=== PATIENT | male | born 1995 | race Hispanic/Latino ===

== ENCOUNTER 2019-06-27 19:07 | Inpatient (IN) ==
[2019-06-27] MEDS ORDERED: ZOFRAN IV ONE (20:04)
[2019-06-27] MEDS ORDERED: TORADOL IV ONE (20:04)
[2019-06-27 20:12] LABS: BASO# 0.03 X1000 (0.0-0.2); BASO% 0.2 % (0.0-0.8); EOS# 0.09 X1000 (0.0-0.7); EOS% 0.6 % (0.0-10.0); HEMATOCRIT 42.9 % (42.0-52.0); HEMOGLOBIN 14.9 g/dL (14.0-18.0); IMM GRAN# 0.03 X1000 (0.0-0.04); IMM GRAN% 0.2 % (0.0-0.5); MCH 29.6 PG (27-31); MCHC 34.7 g/dL (33-37); MCV 85.1 FL (81-99); MONO# 0.62 X1000 (0.11-0.59); MONO% 4.4 % (1.7-9.3); MPV 9.1 FL (7.4-10.4); NEUT# 11.74 X1000 (1.4-6.5); NEUT% 82.6 % (42.2-75.2); PLT 297 X1000 (130-400); RBC 5.04 XMIL (4.7-6.1); RDW 12.2 % (11.5-14.5); WBC 14.21 X1000 (4.8-10.8)
[2019-06-27 20:29] LABS: BILIRUBIN URINE NEGATIVE (NEGATIVE); BLOOD URINE NEGATIVE (NEGATIVE); CLARITY VERY CLOUDY (CLEAR); COLOR YELLOW; GLUCOSE URINE NEGATIVE (NEGATIVE); KETONE URINE NEGATIVE (NEGATIVE); LEUKOCYTES URINE TRACE (NEGATIVE); NITRITE URINE NEGATIVE (NEGATIVE); PROTEIN URINE NEGATIVE (NEGATIVE); UROBILINOGEN URINE NORMAL
[2019-06-27] MEDS: NS 1,000 ML IV ONE (20:31)
[2019-06-27 20:38] LABS: AGAP 11; ALBUMIN 5.2 g/dL (3.5-5.0); ALKALINE PHOSPHATASE 138 U/L (32-122); BUN 16 mg/dL (8-22); CALCIUM 9.8 mg/dL (8.8-10.2); CHLORIDE 102 mmol/L (98-107); COSMO 282; CREATININE 0.8 mg/dL (0.7-1.2); ESTIMATED GFR > 60; GLUCOSE 118 mg/dL (70-104); GOT 32 U/L (10-34); GPT 46 U/L (10-44); LIPASE 12 U/L (13-60); POTASSIUM 3.6 mmol/L (3.5-5.1); SODIUM 140 mmol/L (136-145); TCO2 27 mmol/L (25-35); TOTAL PROTEIN 7.7 g/dL (6.3-8.3)
[2019-06-27 20:44] LABS: URINE BACTERIA 2+ /HFP; URINE CAST NONE SEEN /LPF; URINE CRYSTAL NONE SEEN /HPF; URINE EPITHELIAL CELLS <10 /HPF (<10); URINE SOURCE CLEAN CATCH; URINE WBC <10 /HPF (<10); URINE YEAST NONE SEEN /HPF
[2019-06-27] MEDS ORDERED: MORPHINE IV ONE (20:50)
[2019-06-27] MEDS ORDERED: NS 1,000 ML IV ONE (23:07)
[2019-06-27] MEDS ORDERED: ZOFRAN IV PRN (23:08)
[2019-06-27] MEDS ORDERED: MORPHINE IV PRN (23:08)
[2019-06-27] MEDS ORDERED: ZOSYN 4.5 GM in NS 100 ML IV SCH (23:15)
[2019-06-28] MEDS: NS 1,000 ML IV ONE (00:01)
[2019-06-28] MEDS ORDERED: TORADOL IV PRN (02:00)
[2019-06-28 06:25] LABS: BASO# 0.02 X1000 (0.0-0.2); BASO% 0.2 % (0.0-0.8); EOS# 0.09 X1000 (0.0-0.7); EOS% 0.8 % (0.0-10.0); HEMATOCRIT 40.6 % (42.0-52.0); IMM GRAN# 0.02 X1000 (0.0-0.04); IMM GRAN% 0.2 % (0.0-0.5); LYMPH% 16.5 % (20.5-51.1); MCH 29.6 PG (27-31); MCHC 34.5 g/dL (33-37); MCV 85.8 FL (81-99); MONO# 0.84 X1000 (0.11-0.59); MONO% 7.7 % (1.7-9.3); MPV 9.3 FL (7.4-10.4); NEUT# 8.11 X1000 (1.4-6.5); NEUT% 74.6 % (42.2-75.2); PLT 276 X1000 (130-400); RBC 4.73 XMIL (4.7-6.1); RDW 12.4 % (11.5-14.5); WBC 10.88 X1000 (4.8-10.8)
--- NOTE | 2019-06-28 06:31 | HISTORY AND PHYSICAL ---
HISTORY: This is a 23-year-old male who yesterday developed some epigastric pain across his mid abdomen. Because of the pain, he sought medical attention. This morning he says he feels better, and he is not having pain. When he had come to the emergency department last night, he underwent a CT scan which showed an appendicolith. His white count was slightly elevated so he was admitted for observation. Today, he feels better. He denies any other medical illnesses. MEDICATIONS: He takes no scheduled medications. ALLERGIES: He has no known drug allergies. SOCIAL HISTORY: He does work with the [employer] department. He denies alcohol intake. Denies smoking. REVIEW OF SYSTEMS: Negative in all 10 subsystems. PHYSICAL EXAMINATION: VITAL SIGNS: He is afebrile. Heart rate 61, blood pressure 105/53, and respiratory rate is 18. LYMPHATIC: No cervical adenopathy. LUNGS: Bilateral breath sounds. HEART: Regular rate and rhythm. ABDOMEN: Soft. Currently, he is nontender. Bowel sounds are present. EXTREMITIES: No peripheral edema. NEUROLOGIC: He is awake and alert. He does speak Khmer. LABORATORY: His white count upon admission was 14,000 with a left shift. He had a mildly elevated alkaline phosphatase at 138. ALT 146. His lipase was low. PLAN: The plan will be to repeat his white count this morning, and do serial abdominal exams. We will decide about operative intervention since he is clinically improved. cc: David Whitmore MD
--- NOTE | 2019-06-28 07:19 | Diag Imaging Result Doc PS360 ---
EXAM: CT ABD/PELVIS W/IV CONT ONLY 06/27/2019 HISTORY: diffuse abd pain TECHNIQUE: This exam was performed using automated exposure control, adjustment of mA or kV according to patient size, and/or use of iterative reconstruction technique. COMMENT: There are no previous studies available for comparison. The visualized portion of the chest is unremarkable. There is lucency in the periportal regions of the liver. This is a nonspecific finding but may be seen in hepatitis. The gallbladder appears to be clear. The kidneys are without evidence of hydronephrosis or mass. The spleen is not enlarged. The adrenal glands are not enlarged. The pancreas is normal in appearance. There is some stool in the colon. The small bowel is not distended. The aorta is not distended. There is no evidence of significant adenopathy. Pelvis: There are apparent fecalith in the appendix. The distal appendix appears to be distended measuring up to a centimeter in diameter. There is no evidence of periappendiceal inflammation and the wall of the appendix does not appear to be thickened. The urinary bladder is not distended. There is no evidence of free fluid or significant adenopathy. The regional skeleton is intact. IMPRESSION: 1. Periportal edema. 2. Distended appendix with appendicoliths. Electronically signed by Preston Morris 06/28/2019 7:17 AM
[2019-06-28 12:19] VITALS: BP 101/53
--- NOTE | 2019-06-28 18:37 | GENERAL SURGERY PROGRESS NOTE ---
DATE: 06/28/2019 SUBJECTIVE: Frantz now has no pain. He is nontender. He is hungry. He wants to go home. His white count has fallen spontaneously without any antibiotic therapy. I have instructed him to return to the ER if he has further problems. He understands. cc: David Whitmore MD
--- NOTE | 2019-07-04 01:26 | PROVIDER DOCUMENTATION ---
This chart was entered by America Cardenas Scribe, acting as scribe for Anabel Johnson MD. HPI-Abdominal Pain/GI Problem - General Chief Complaint: Abdominal Pain Stated Complaint: ABD PAIN/VOMITING Time Seen by Provider: 06/27/19 19:39 Source: patient Allergies/Adverse Reactions: Patient Allergies Allergy/AdvReac Type Severity Reaction Status Date / Time No Known Allergies Allergy Verified 06/28/19 00:47 Home Medications: Home Medication List Medication Instructions Recorded Confirmed Last Taken Type NK [No Home Medications] 06/28/19 06/28/19 Unknown History - History of Present Illness-ABD Nature of Presenting Problems: 23yom presents to ED cc abdominal pain, nausea, diarrhea and vomiting for last 7hrs. Pt denies fever or trying any home meds for relief. Pt is in moderate distress upon exam. Abdominal Pain Onset Location: reports: periumbilical Quality of Pain: reports: cramping Severity in ED: reports: moderate Onset/Duration: reports: this afternoon Timing: reports: still present, constant Activities at Onset: reports: light activity Exposure to sick contacts?: No Modifying Factors: worse with: palpation Associated Symptoms: reports: diarrhea, nausea, vomiting Last BM: this afternoon Dark Stools Present?: reports: none noticed Rectal Bleeding: reports: none Rectal Pain: reports: none Emesis Description: reports: clear Bruising or Bleeding Gums?: No Similar Symptoms Previously?: No Recently seen or treated by another doctor?: No Review of Systems - Adult - REVIEW OF SYSTEMS - ADULT Constitutional: reports: see HPI. denies: chills, fever, fatique Eyes: reports: no symptoms reported Ears, Nose, Mouth & Throat: reports: no symptoms reported Cardiovascular: reports: no symptoms reported Respiratory: reports: no symptoms reported Gastrointestinal: reports: see HPI, abdominal pain, diarrhea, nausea, vomiting Genitourinary: reports: no symptoms reported Musculoskeletal: reports: no symptoms reported Integumentary: reports: no symptoms reported Neurological: reports: no symptoms reported Psychiatric: reports: no symptoms reported Endocrine: reports: no symptoms reported Hematologic/Lymphatic: reports: no symptoms reported Allergic/Immunologic: reports: no symptoms reported All Other Systems: Reviewed and Negative Past History - Adult - PAST MEDICAL HISTORY-ADULT Review of Records: reports: Nursing Assessment Review, Medications Reviewed, Social history reviewed & non-contributory. Major Childhood Illnesses: reports: denies history Cardiovascular: reports: denies history Respiratory: reports: denies history Gastrointestinal: reports: denies history Obstetrical/Gynecological: reports: denies history Genitourinary: reports: denies history Musculoskeletal: reports: denies history Neurological: reports: denies history Endocrine/Immune: reports: denies history Other Conditions: reports: denies history - IMMUNIZATION STATUS Childhood Immunizations: See Nurse Assessment Flu Vaccine: See Nurse Assessment - FAMILY HISTORY Family History: reviewed, not pertinent - SOCIAL HISTORY Smoking: denies Physical Exam-General - PHYSICAL EXAM-ADULT Initial Vital Signs Reviewed: Yes - CONSTITUTIONAL General Appearance: alert, moderate distress. negative: anxious, combative - EYES Eyes: PERRL/EOMI, pink conjunctivae. negative: photophobia - HEAD, EARS, NOSE, MOUTH & THROAT HENMT: normocephalic/atraumatic. negative: angioedema - RESPIRATORY Respiratory: chest non-tender, lungs clear, normal breath sounds. negative: stridor, wheezing - CARDIOVASCULAR Cardiovascular: normal peripheral pulses, regular rate, rhythm, no edema. negative: bradycardia, tachycardia - GASTROINTESTINAL (ABDOMEN) Abdominal Exam: normal bowel sounds, soft, tenderness (periumbilical). negative: non tender - SKIN Integumentary: normal color. negative: diaphoresis, ecchymosis - PSYCHIATRIC Psych/Mental Status: normal mood/affect, oriented x 3. negative: anxious, disheveled Progress - PLAN OF CARE/RESULTS Progress/Plan/Lab Results: Vital Signs - 8 hr 06/27/19 19:19 Temperature 98.7 F Pulse Rate 69 Respiratory Rate 18 Blood Pressure 112/58 O2 Sat by Pulse Oximetry 100 Orders Category Date Time Status Saline Loc DIRECTED Care 06/27/19 19:26 Active NPO Diet 06/27/19 19:26 Active AMYLASE [CHEM] Stat Lab 06/27/19 19:26 Ordered CBC WITH ELECTRONIC DIFF [HEME] Stat Lab 06/27/19 19:26 Ordered COMPREHENSIVE METABOLIC PANEL [CHEM] Stat Lab 06/27/19 19:26 Uncollected LIPASE [CHEM] Stat Lab 06/27/19 19:[address] W/POSS RFLX CULT [URINALYSIS] Stat Lab 06/27/19 19:[address] showing concern for appendicitis vs appendocolith. Patient was in moderate amount of pain upon arrival. Improved after toradol minimally and impro delmis more after morphine. COncern for appendicitis. WBC to 14k. Spoke to Dr Whitmore consulting business developer for general surgery who accepted patient for admission. Advised to hold off antibiotics. Stable for floor. Result Diagrams: 06/28/19 06:14 06/27/19 19:59 - CT/MRI 1 CT Study: Abdomen, Pelvis Impression: See EMR Report (Dilated appendix with appendicoliths shows no inflammatory changes. Correlate with signs or symptoms of appendicitis. Intrahepatic periportak edema is nonspecific. This can be seen with hepatitis or rapid IV fluids.) - CONSULTS/PCP/HOSPITALIST Notification #1 *Consult/PCP/Hospitalist*: Dr. Whitmore Time Discussed: 23:01 Consult Disposition: Admit (agreed to admit pt) Departure - Departure Date of Disposition Decision: 06/27/19 Time of Disposition Decision: 23:01 DIAGNOSIS: Abdominal pain, Appendicitis Disposition: HOME 01 Certified Medical Emergency: Emergent Condition: Stable - Critical Care Note This patient required my direct & personal management of CC.: No Attestation - Physician/ JOSE ROBERTO Attestation Patient care was provided by Advanced Practice Provider:: No The physician spent face to face time with patient:: Yes Advanced Practice Provider documentation review:: Supervising physician onsite and consulted in the evaluation and care of this patient. The physician did have a face to face encounter with the patient. This chart was documented by the indicated scribe, (America Cardenas Scribe) and accurately reflects the services I performed and decisions made by me, Anabel Johnson MD, as attested by the provider's signature.
== END 2019-06-28 15:29 | disposition home or self-care (01) | DRG 395 ==
LOC: P.ED 19:07 → 4N 06-28 00:03
PROVIDERS: ADMIT Surgery; ATTEND Surgery